=== PATIENT | female | born 1950 | race Caucasian/White ===

== ENCOUNTER 2023-09-06 10:56 | Outpatient (AMB) | payer MEDICARE, OTHER, SELFPAY ==
--- NOTE | 2023-09-06 11:03 | AM.OFFWIN_ITS ---
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 Pt states she has had this rash for two months and it has progressively gotten worse. Pt has dermatology appt on Sunday. Pt states she started taking Dupixent in October of 2022 and suggests it may be a reaction to that injection. 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 She reports blotchy rash on chest, back, arms, and somewhat on legs and face. This feels like a sunburn per patient. It is mildly dry and itchy. She has tried Cerave and and Neosporin topically with some minor benefit. She started Dupixent for excema last October. This is the only newer medication she is on. She states she has not used any new products. She has been trying elimination diets but nothing has improved the rash. Denies any respiratory symptoms. She has a derm f/u appointment on Sunday. [facility] Social History Patient Tobacco Use Status: Never used Tobacco Review of Systems Const All systems reviewed & are unremarkable except as noted in HPI and below Physical Exam Vital Signs: Last Vital Signs Temp 97.9 F 09/06/23 11:05 Pulse 81 09/06/23 11:05 BP 138/74 09/06/23 11:05 Pulse Ox 97 09/06/23 11:05 Oxygen Delivery Method Room Air 09/06/23 11:05 BMI result Body Mass Index 26.6 Const General: cooperative and no acute distress Nutritional Appearance: average body habitus Neck Neck: Yes no lymphadenopathy Resp Effort & Inspection: normal respiratory effort Auscultation: clear to auscultation bilaterally Cardio Jugular venous distension: no JVD Palpation: normal PMI Rate: regular rate Rhythm: regular rhythm Skin Other: Dry, erythematous, macular rash on arms, chest, back, and smaller areas on legs. No open areas. Extrem General: Yes capillary refill normal and Yes no clubbing, cyanosis or edema Psych Appearance: grossly normal Mental Status: mental status grossly normal Speech and movement: Normal speech and movement present Assessment & Plan Assessment & Plan (1) Rash: Code(s): R21 - Rash and other nonspecific skin eruption Plan: This rash has been worsening over the last two months. It is possibly due to her Dupixent. Next dose is not due until next Sunday. She has a dermatology appointment this coming Sunday, so they will likely advise her to hold the next dose and see if this rash resolves. She can continue to put hydrating lotion on as needed. I will start her on a prednisone taper. We reviewed indications, use, possible s/e from this medication. She will f/u with derm however if this worsens or new symptoms develop prior to that, she can go to the ED for further evaluation. She agrees to plan. Medications: New prednisone Take 5 tabs for 2 days, then take 4 tabs for two days, then take 3 tabs for two days, then take 2 tabs for two days, then take 1 tab for 2 days. 10 mg PO DAILY 30 tabs 0RF R21 - Rash and other nonspecific skin eruption Coding Level of Care Code Est Pt Level 3 (45699) Diagnoses Rash R21
[2023-09-06 11:05] VITALS: BP 138/74; PULSE 81; TEMP 36.6; O2SAT 97; BMI 26.6
== END 2023-09-06 11:36 | disposition home or self-care (01) ==
PROVIDERS: PCP Internal Medicine; Visit Provider Nurse Practitioner Family
DX: R21 Rash and other nonspecific skin eruption (principal)
CPT/HCPCS: 99213